=== PATIENT | male | born 1965 | race Two or more races ===

== ENCOUNTER 2020-07-18 14:45 | Inpatient (IN) | payer BC, OTHER ==
[~2020-07-18] VITALS: Ht 165.1 cm; Wt 96.2 kg
[2020-07-18] MEDS ORDERED: ASPirin 81 mg TAB PO ONE (15:00)
[2020-07-18 15:32] LABS: Basophils # (auto) 0.1 10 ^3/uL (0-0.2); Eosinophils # (auto) 0.2 10 ^3/uL (0-0.8); Hematocrit 47.3 % (41.0-53.0); Hemoglobin 15.6 g/dL (13.5-17.5); Lymphocytes # (auto) 3.3 10 ^3/uL (0.4-5.4); Lymphocytes % (auto) 38.8 % (10.0-50.0); Mean Corpuscular Hemoglobin 33.5 pg (28.0-32.0); Mean Corpuscular Volume 101.5 fL (80.0-100.0); Monocytes # (auto) 0.9 10 ^3/uL (0-1.3); Monocytes % (auto) 10.1 % (0.0-12.0); Neutrophils # (auto) 4.1 10 ^3/uL (1.6-8.6); Neutrophils % (auto) 48.1 % (37.0-80.0); Platelet Count (auto) 280 10^3/uL (140-450); Red Blood Cells 4.65 10^6/uL (4.5-5.90); Red Cell Distribution Width 14.4 % (11.8-14.3); White Blood Cell 8.5 10^3/uL (4.4-10.8)
[2020-07-18 15:43] LABS: Alanine Aminotransferase 30 U/L (16-61); Anion Gap 7 (5-15); Aspartate Aminotransferase 14 U/L (15-37); BUN/Creatinine Ratio 19.1; Blood Urea Nitrogen 18 mg/dL (7-18); Calcium 9.2 mg/dL (8.5-10.1); Carbon Dioxide 25 mmol/L (21-32); Chloride 104 mmol/L (98-107); GFR African American 108 mL/min; GFR Non-African American 89 mL/min; Glucose 98 mg/dL (74-106); Potassium 3.8 mmol/L (3.5-5.1); Sodium 136 mmol/L (136-145)
[2020-07-18 15:48] LABS: Alkaline Phosphatase 89 U/L (45-117); Bilirubin, Total 0.4 mg/dL (0.2-1.0); Total Protein 7.8 g/dL (6.4-8.2)
[2020-07-18] MEDS ORDERED: NITROGLYCERIN 0.4 MG SL TAB SL PRN (17:00)
[2020-07-18] MEDS ORDERED: MORPHINE SULF INJ 2 MG/ML SYRINGE 1ML IV PRN (17:00)
[2020-07-18] MEDS ORDERED: DOCUSATE CALCIUM 240 MG CAP PO PRN (17:00)
[2020-07-18] MEDS ORDERED: LABETALOL HCL 5 MG/ML 4ML SYRINGE IV PRN (17:00)
[2020-07-18] MEDS ORDERED: LORazepam 0.5 MG TAB PO PRN (17:00)
[2020-07-18] MEDS ORDERED: SODIUM CHLORIDE 0.9% 1,000 ML IV SCH (17:00)
[2020-07-18 18:13] LABS: Urine Bacteria NONE SEEN /hpf (None Seen); Urine Blood Negative /uL (Negative); Urine Specific Gravity 1.016 (1.001-1.035); Urine WBC 5 /hpf (0 - 3)
--- NOTE | 2020-07-18 18:19 | NUR ---
PT ARRIVED ON UNIT. A&OX4. CAN SPEAK [place]. PREFERS [place]. NO PAIN AT THIS TIME. ON RA. NO SOB OR S/S OF DISTRESS AT THIS TIME
[2020-07-18 18:22] VITALS: BP 135/80
[2020-07-18 18:30] VITALS: BP 150/90
--- NOTE | 2020-07-18 18:55 | NUR ---
CLOSING SHIFT REPORT CARE AND ADMISSION QUESTIONS ENDORSED TO SHEKHAR STEEN.
--- NOTE | 2020-07-18 19:00 | NUR ---
Opening Shift Note Assumed care of patient, awake and alert. No S/S of distress/SOB or pain. Instructed on POC and to call for assist PRN, will continue to monitor for changes Q1hr and PRN.
[2020-07-18] MEDS ORDERED: ALLO100T PO (19:55)
[2020-07-18] MEDS ORDERED: OLME40TA26 PO (19:55)
[2020-07-18 21:33] VITALS: BP 148/95
--- NOTE | 2020-07-19 02:15 | NUR ---
Patient requested for Ativan to help him sleep as per md ordered.
[2020-07-19 05:00] VITALS: BP 143/78
--- NOTE | 2020-07-19 05:20 | NUR ---
EKG done. Patient no complains. Tolerated.
[2020-07-19 06:49] LABS: Basophils # (auto) 0.1 10 ^3/uL (0-0.2); Monocytes # (auto) 0.7 10 ^3/uL (0-1.3); Neutrophils # (auto) 2.4 10 ^3/uL (1.6-8.6); Neutrophils % (auto) 40.5 % (37.0-80.0); Nucleated Red Blood Cells % 0.1 %; White Blood Cell 5.9 10^3/uL (4.4-10.8)
[2020-07-19 06:51] LABS: Basophils % (auto) 0.9 % (0.0-2.0); Eosinophils # (auto) 0.2 10 ^3/uL (0-0.8); Eosinophils % (auto) 4.1 % (0.0-7.0); Hematocrit 44.6 % (41.0-53.0); Hemoglobin 15.2 g/dL (13.5-17.5); Lymphocytes # (auto) 2.5 10 ^3/uL (0.4-5.4); Mean Corpuscular Hemoglobin 34.5 pg (28.0-32.0); Mean Corpuscular Hgb Conc. 34.1 g/dL (32.0-36.0); Mean Corpuscular Volume 101.3 fL (80.0-100.0); Monocytes % (auto) 12.5 % (0.0-12.0); Platelet Count (auto) 247 10^3/uL (140-450); Red Blood Cells 4.41 10^6/uL (4.5-5.90); Red Cell Distribution Width 14.3 % (11.8-14.3)
--- NOTE | 2020-07-19 06:52 | NUR ---
Closing Shift event Patient no shortness of breath and distress seen right now. All needs met. No complains.
[2020-07-19 07:09] LABS: Potassium 4.3 mmol/L (3.5-5.1)
[2020-07-19 07:19] LABS: INR 0.99 (0.9-1.15); Partial Thromboplastin Time 27.7 sec (23.0-31.2)
[2020-07-19 07:23] LABS: Albumin 3.5 g/dL (3.4-5.0); Bilirubin, Total 0.5 mg/dL (0.2-1.0); Calcium 8.8 mg/dL (8.5-10.1); Total Protein 6.8 g/dL (6.4-8.2)
[2020-07-19] MEDS ORDERED: ADENOSINE 81 MG in GIVE UN-DILUTED 0 ML IV STA (07:57)
--- NOTE | 2020-07-19 08:05 | NUR ---
IV insertion IV access obtained, via clean sterile technique by inserting 20 gauge catheter at after attempt(s). IV secured properly. No trauma to site. Patient tolerated well. NOTE:
--- NOTE | 2020-07-19 08:11 | NUR ---
PT LEFT FOR STRESS TEST
[2020-07-19 09:01] VITALS: BP 145/77
[2020-07-19] MEDS ORDERED: ENOXAPARIN SOD 40 MG/0.4 ML SYRINGE SC SCH (10:00)
[2020-07-19] MEDS ORDERED: PANTOPRAZOLE 40 MG TAB PO SCH (10:00)
[2020-07-19 12:30] VITALS: BP 131/78
--- NOTE | 2020-07-19 13:00 | NUR ---
called echo no answer according to amrita thompson she messaged central processing tech and it will be done after lunch
--- NOTE | 2020-07-19 13:02 | NUR ---
NAVDEEP thompson rounded on patient stated that stress test is nagativ kendra dif echo is normal pt is cleared by cardiology standpoint to go home
[2020-07-19] MEDS ORDERED: METOPROLOL TARTRATE 25 MG TAB PO ONE (13:15)
[2020-07-19] MEDS ORDERED: ASPirin 81 mg TAB PO ONE (13:15)
--- NOTE | 2020-07-19 13:19 | NUR ---
md way rounded on patient agreed if echo is normal patient can go home
--- NOTE | 2020-07-19 15:16 | NUR ---
attempted to call echo to check status no answer, paged amrita thompson
--- NOTE | 2020-07-19 15:23 | NUR ---
spoke with monserrat informed her echo has not been done she said she will call them
[2020-07-19 17:21] VITALS: BP 141/94
--- NOTE | 2020-07-19 17:25 | NUR ---
pt discharged home with cardiac clearance iv x2 removed tele box off sent back to tele room
[2020-07-19] MEDS ORDERED: METOPROLOL TARTRATE 25 MG TAB PO SCH (22:00)
[2020-07-19] MEDS ORDERED: ATORVASTATIN 20 MG TAB PO SCH (22:00)
[2020-07-20] MEDS ORDERED: ASPirin 81 mg TAB PO SCH (10:00)
== END 2020-07-19 17:25 | disposition home or self-care (01) | DRG 303 ==
LOC: ER 14:45 → TELE 14:46 → TELE-WESTW 18:21
PROVIDERS: ATTEND Internal Medicine
DX: I25.10 Atherosclerotic heart disease of native coronary artery without angina pectoris (principal); E66.9 Obesity, unspecified; E78.5 Hyperlipidemia, unspecified; I10 Essential (primary) hypertension; F41.9 Anxiety disorder, unspecified; M10.9 Gout, unspecified; Z79.82 Long term (current) use of aspirin; Z79.899 Other long term (current) drug therapy; Z68.35 Body mass index [BMI] 35.0-35.9, adult
CPT/HCPCS: 36415; 71046; 78452; 80053; 80061; 81001; 83036; 83735; 84484; 84550; 85025; 85610; 85730; 93005; 93017; 93306; G0378; J0153

== ENCOUNTER 2020-11-21 14:48 | Emergency (ER) | payer BC ==
[~2020-11-21] VITALS: Ht 165.1 cm; Wt 98.0 kg
[~2020-11-21 14:48] MED LIST: ALLO100T PO; OLME40TA26 PO
[2020-11-21 14:56] VITALS: BP 148/102
[2020-11-21] MEDS ORDERED: ASPirin 81 mg TAB PO ONE (15:15)
[2020-11-21 15:39] LABS: Basophils # (auto) 0.1 10 ^3/uL (0-0.2); Eosinophils # (auto) 0.2 10 ^3/uL (0-0.8); Eosinophils % (auto) 2.1 % (0.0-7.0); Hemoglobin 15.8 g/dL (13.5-17.5); Monocytes # (auto) 0.8 10 ^3/uL (0-1.3)
[2020-11-21 15:41] LABS: Basophils % (auto) 1.4 % (0.0-2.0); Lymphocytes # (auto) 2.3 10 ^3/uL (0.4-5.4); Lymphocytes % (auto) 30.9 % (10.0-50.0); Mean Corpuscular Hemoglobin 34.4 pg (28.0-32.0); Mean Corpuscular Hgb Conc. 34.3 g/dL (32.0-36.0); Mean Corpuscular Volume 100.3 fL (80.0-100.0); Monocytes % (auto) 10.7 % (0.0-12.0); Neutrophils # (auto) 4.2 10 ^3/uL (1.6-8.6); Neutrophils % (auto) 54.9 % (37.0-80.0); Platelet Count (auto) 283 10^3/uL (140-450); Red Blood Cells 4.58 10^6/uL (4.5-5.90); Red Cell Distribution Width 13.9 % (11.8-14.3); White Blood Cell 7.6 10^3/uL (4.4-10.8)
[2020-11-21 15:54] LABS: Anion Gap 6 (5-15); Blood Urea Nitrogen 20 mg/dL (7-18); Calcium 8.3 mg/dL (8.5-10.1); Carbon Dioxide 26 mmol/L (21-32); Chloride 104 mmol/L (98-107); Glucose 85 mg/dL (74-106); Potassium 4.2 mmol/L (3.5-5.1); Sodium 136 mmol/L (136-145)
[2020-11-21 15:59] LABS: Alanine Aminotransferase 39 U/L (16-61); Alkaline Phosphatase 82 U/L (45-117); Aspartate Aminotransferase 25 U/L (15-37); Bilirubin, Total 0.2 mg/dL (0.2-1.0); GFR African American 94 mL/min; GFR Non-African American 78 mL/min; Total Protein 7.7 g/dL (6.4-8.2)
== END 2020-11-21 16:44 | disposition home or self-care (01) ==
LOC: ER 14:48
DX: R07.89 Other chest pain (principal); I10 Essential (primary) hypertension; E78.5 Hyperlipidemia, unspecified; Z79.899 Other long term (current) drug therapy
CPT/HCPCS: 36415; 71046; 80053; 84484; 85025; 93005

== ENCOUNTER 2022-01-30 02:56 | Emergency (ER) | payer BC ==
[~2022-01-30] VITALS: Ht 165.1 cm; Wt 98.0 kg
[2022-01-30] MEDS ORDERED: LIDOCAINE VISCOUS 2% 15ML UD PO ONE (03:15)
[2022-01-30] MEDS ORDERED: DONNATAL 5ml ORAL Elix (BELLADONNA ALK-PHENOBARB) PO ONE (03:15)
[2022-01-30] MEDS ORDERED: ALUM & MAG HYDROX-SIMETH LIQ(MAALOX) 30 ML PO ONE (03:15)
[2022-01-30 03:30] LABS: Basophils # (auto) 0.1 10 ^3/uL (0-0.2); Basophils % (auto) 0.9 % (0.0-2.0); Eosinophils # (auto) 0.2 10 ^3/uL (0-0.8); Eosinophils % (auto) 2.8 % (0.0-7.0); Hematocrit 41.6 % (41.0-53.0); Hemoglobin 14.6 g/dL (13.5-17.5); Lymphocytes # (auto) 2.7 10 ^3/uL (0.4-5.4); Lymphocytes % (auto) 35.4 % (10.0-50.0); Mean Corpuscular Hemoglobin 34.5 pg (28.0-32.0); Mean Corpuscular Volume 98.4 fL (80.0-100.0); Monocytes # (auto) 0.8 10 ^3/uL (0-1.3); Monocytes % (auto) 10.3 % (0.0-12.0); Neutrophils # (auto) 3.8 10 ^3/uL (1.6-8.6); Neutrophils % (auto) 50.6 % (37.0-80.0); Red Blood Cells 4.23 10^6/uL (4.5-5.90); Red Cell Distribution Width 14.1 % (11.8-14.3); White Blood Cell 7.5 10^3/uL (4.4-10.8)
[2022-01-30 03:47] LABS: Albumin 3.5 g/dL (3.4-5.0); BUN/Creatinine Ratio 31.9; Calcium 8.4 mg/dL (8.5-10.1)
[2022-01-30 03:51] LABS: Bilirubin, Total 0.3 mg/dL (0.2-1.0); Total Protein 6.5 g/dL (6.4-8.2)
[2022-01-30 04:42] LABS: Urine Bacteria NONE SEEN /hpf (None Seen); Urine Blood Negative /uL (Negative); Urine Specific Gravity 1.027 (1.001-1.035); Urine WBC 1 /hpf (0 - 3)
[2022-01-30 04:46] VITALS: BP 150/92
[2022-01-30] MEDS ORDERED: FAMO20TA10 PO (04:57)
[2022-01-30] MEDS ORDERED: FAMO-12 PO (05:07)
== END 2022-01-30 05:07 | disposition home or self-care (01) ==
LOC: ER 02:56
DX: K29.70 Gastritis, unspecified, without bleeding (principal); I10 Essential (primary) hypertension; E78.5 Hyperlipidemia, unspecified; M10.9 Gout, unspecified; Z88.8 Allergy status to other drugs, medicaments and biological substances
CPT/HCPCS: 36415; 80053; 81001; 85025; 93005

== ENCOUNTER 2025-07-13 04:32 | Emergency (ER) | payer BC ==
[~2025-07-13] VITALS: Ht 165.1 cm; Wt 80.0 kg
[~2025-07-13 04:32] MED LIST changes: +FAMO-12 PO; -OLME40TA26 PO; +OLME40TA78 PO
[2025-07-13 04:33] VITALS: BP 165/104; PULSE 69; RESP 18; TEMP 97.7; O2SAT 95
[2025-07-13] MEDS ORDERED: METH4PAK PO (04:59)
[2025-07-13] MEDS ORDERED: AMIT25TA20 PO (04:59)
--- NOTE | 2025-07-13 05:03 | ED.PDOC ---
Eye-HPI HPI Comments LEFT EAR NOISE FOR 3 WEEKS TONIGHT AROUND EAR FEELS STRANGE, ALSO TONIGHT FEELS MORE TIRED FATIGUED STATES HASNT BEEN SLEEPING. DENIES FEVER, CHILLS, DIZZINESS, LOSS OF HEARING OR TRAUMA. Chief Complaint: Earache Time Seen by MD: 04:40 Primary Care Provider: ELYSSA Reviewed Notes: Nurses Notes, Medications, Allergies Allergies: Coded Allergies: Nifedipine (Verified Allergy, Unknown, 11/17/14) Home Meds Active Scripts Famotidine (Famotidine) 20 Mg Tab, 20 MG PO BID, #14 MG Prov:REKHA ROSS MD 01/30/22 Reported Medications Allopurinol (Allopurinol) 100 Mg Tab, 100 MG PO DAILY for 30 Days, MG 07/18/20 Olmesartan Medoxomil (Benicar) 40 Mg Tab, 1 TAB PO DAILY, #30 TAB 5 Refills 07/18/20 Mode of Arrival: Ambulatory Past Medical History PAST MEDICAL HISTORY: Anxiety, Gout, High Lipids, HTN Family History Family History: No family hx of Heart phillip, No family hx of HTN Social History Smoker: Non-Smoker Alcohol: Occasionally Drugs: Denies Drug Use Lives In: Home All Other Systems: Reviewed and Negative (SEE HPI) Physical Exam General Appearance: No Apparent Distress, Normal HEENT: Normal ENT Inspection, Pharynx Normal, TMs Normal Neck: Full Range of Motion, Non-Tender Respiratory: Lungs Clear, No Respiratory Distress, Normal Breath Sounds Cardiovascular: No Edema, No JVD, No Murmur, No Gallop, Normal Peripheral Pulses, Regular Rate/Rhythm Breast Exam: Deferred Gastrointestinal: No Organomegaly, Non Tender, No Pulsatile Mass, Normal Bowel Sounds, Soft Genitalia: Deferred Pelvic: Deferred Rectal: Deferred Extremities: Normal capillary refill, Normal range of motion, No pedal edema Musculoskeletal : Apperance: Normal Neurologic: Alert, No Motor Deficits, Normal Affect, Normal Mood, No Sensory Deficits Cerebellar Function: Normal Reflexes: NOT DONE Skin: Dry, Normal Color, Warm Lymphatic: No Adenopathy Was a procedure done? Was a procedure done?: No EENT DIFF Eye: N/A Ear: Cerumen Impaction, Foreign Body, Otitis Externa, Barotrauma, Otitis Media, Perforation, Dental, Pharyngitis X-Ray, Labs, Meds, VS Vital Signs Date Time Temp Pulse Resp B/P (MAP) Pulse Ox O2 Delivery O2 Flow Rate FiO2 07/13/25 04:33 97.7 69 18 165/104 95 97.7 X-Ray, Labs, Meds, VS Comment SCRIPT TRIAL OF AMITRIPTYLINE AND MEDROL DOSEPAK. ADVISED TAKE MEDICATIONS PRESCRIBED SIDE EFFECTS DISCUSSED. FOLLOW UP WITH HIS PCP FOR REFERRAL TO ENT ER RETURN PRECAUTIONS GIVEN PATIENT INDICATES UNDERSTANDING AGREES WITH DISCHARGE PLAN OF CARE. Time of 1ST Reevaluation: 04:40 Reevaluation 1ST: Unchanged Time of 2ND Reevaluation: 04:59 Reevaluation 2ND: Unchanged Patient Education/Counseling: Diagnosis, Treatment, Prognosis, Need For Follow Up Family Education/Counseling: No Family Present SEPSIS Sepsis Screen Date sepsis recognized/suspect: Jul 13, 2025 Time Sepsis recognized/suspect: 043 Recent Procedure: No On Antibiotic Therapy: No Respiratory Rate >20: No Heart Rate >90: No Temp<36 C (96.8 F) or >38.3 C: No SBP <90 or MAP <65 mmHG: No New Acute Mental Status Change: No Is the patient on CPAP, BIPAP,: No Vital Signs Date Time Temp Pulse Resp B/P (MAP) Pulse Ox O2 Delivery O2 Flow Rate FiO2 07/13/25 04:33 97.7 69 18 165/104 95 97.7 Departure 1 Departure Time of Disposition: 04:57 Impression: Primary Impression: Tinnitus Qualified Codes: H93.12 - Tinnitus, left ear Disposition: 01 HOME / SELF CARE / HOMELESS Condition: Stable e-Prescriptions Amitriptyline Hcl (Amitriptyline Hcl) 25 Mg Tab 1 TAB PO QPM PRN for 7 Days, #7 TAB Prov: BRYCE PAUL 07/13/25 Methylprednisolone (Medrol Dosepak) 4 Mg Daljit 4 MG PO UD for 6 Days, #21 TAB UAD Prov: BRYCE PAUL 07/13/25 Discharged With: Self Critical Care Note Critical Care Time?: No Stability Stability form required: BRYCE Flores Jul 13, 2025 05:03
== END 2025-07-13 05:06 | disposition home or self-care (01) ==
LOC: ER 04:32
DX: H93.12 Tinnitus, left ear (principal); I10 Essential (primary) hypertension; M10.9 Gout, unspecified; E78.5 Hyperlipidemia, unspecified; F41.9 Anxiety disorder, unspecified; Z79.899 Other long term (current) drug therapy; Z88.8 Allergy status to other drugs, medicaments and biological substances